=== PATIENT | female | born 1980 | race Caucasian/White ===

== ENCOUNTER → 2017-09-11 | Outpatient (CLI) | payer MEDICARE, BC ==
--- NOTE | 2017-09-11 11:09 | USB ---
Reason for exam: clinical finding. History: Family history of breast cancer in aunt and breast cancer in grandmother. Benign excisional biopsy of the right breast, 2006. Physical Findings: Nurse did not find any significant physical abnormalities on exam. US Breast BILAT Right breast ultrasound includes all four quadrants, the retroareolar region and axilla. Finding demonstrates a 0.5 x 0.3 x 0.5cm mixed lesion at 5 o'clock. Left breast ultrasound includes all four quadrants, the retroareolar region and axilla. Finding demonstrates a 0.4 x 0.2 x 0.4cm hypoechoic lesion at 5 o'clock, a 0.3 x 0.2 x 0.4cm lesion too small to characterize at 6 o'clock, a 0.4 x 0.3 x 0.4cm mixed lesion at 6 o'clock and a 0.9 x 0.5 x 1.0cm mixed lesion at 4 o'clock. These results were verbally communicated with the patient and result sheet given to the patient on 09/11/17. ASSESSMENT: Probably benign, BI-RAD 3 RECOMMENDATION: Ultrasound of both breasts in 6 months. Manage patient on a clinical basis.
== END | disposition home or self-care (01) ==
LOC: RADUSWWP 09:48
PROVIDERS: ATTEND Family Medicine
DX: R59.0 Localized enlarged lymph nodes (principal)

== ENCOUNTER 2018-03-27 11:16 | Emergency (ER) | payer MEDICARE, OTHER ==
[2018-03-27] MEDS ORDERED: ORPHENADRINE 30 MG/ML 2 ML VIAL IM STA (11:33)
[2018-03-27] MEDS ORDERED: KETOROLAC 60 MG/2 ML VIAL IM STA (11:33)
--- NOTE | 2018-03-27 11:59 | ED ---
Back Pain HPI - General Chief Complaint: Back Pain/Injury Stated Complaint: Back Pain Time Seen by Provider: 03/27/18 11:26 Source: patient, RN notes reviewed, old records reviewed Limitations: no limitations - History of Present Illness Initial Comments: This Patient is a 37-year-old female presents the emergency department today chief complaint of pain in her lumbar spine. Patient reports that yesterday she felt a pop in her back and has been having severe pain and spasming since that time. Patient reports that she has no saddle anesthesias. She denies any history of urinary changes. She denies bloody of water. No abdominal pain. Patient has had a history of spinal issues when she was 18 years old. She has not seen a risk adjustment specialist since that time. She's just been taking Motrin whenever she would have this pain off and on. Patient reports that her pain is never been this severe. - Related Data Previous Rx's Medication Instructions Recorded Cyclobenzaprine [Flexeril] 10 mg PO TID #15 tab 03/27/18 Dexamethasone 0.75 mg PO DAILY #12 tab 03/27/18 Ibuprofen [Motrin] 800 mg PO TID #20 tab 03/27/18 traMADol HCL [Ultram] 50 mg PO Q6HR PRN 3 Days #12 tab 03/27/18 Allergies Allergy/AdvReac Type Severity Reaction Status Date / Time No Known Allergies Allergy Verified 03/27/18 11:21 Review of Systems ROS Statement: Those systems with pertinent positive or pertinent negative responses have been documented in the HPI. ROS Other: All systems not noted in ROS Statement are negative. Past Medical History Past Medical History: Diabetes Mellitus Additional Past Medical History / Comment(s): chronic back pain, migraines, pcos History of Any Multi-Drug Resistant Organisms: None Reported Past Surgical History: Section, Tonsillectomy Additional Past Surgical History / Comment(s): eye surgery Past Psychological History: Depression Smoking Status: Former smoker Past Alcohol Use History: Occasional Past Drug Use History: Marijuana General Exam - General Exam Comments Initial Comments: 37-year-old female. Alert and oriented. Limitations: no limitations General appearance: alert, in no apparent distress Head exam: Present: atraumatic, normocephalic, normal inspection Eye exam: Present: normal appearance, PERRL, EOMI. Absent: scleral icterus, conjunctival injection, periorbital swelling ENT exam: Present: normal exam, mucous membranes moist Neck exam: Present: normal inspection. Absent: tenderness, meningismus, lymphadenopathy Respiratory exam: Present: normal lung sounds bilaterally. Absent: respiratory distress, wheezes, rales, rhonchi, stridor Cardiovascular Exam: Present: regular rate, normal rhythm, normal heart sounds. Absent: systolic murmur, diastolic murmur, rubs, gallop, clicks GI/Abdominal exam: Present: soft, normal bowel sounds. Absent: distended, guarding, rebound, rigid Extremities exam: Present: normal inspection, full ROM, normal capillary refill. Absent: tenderness, pedal edema, joint swelling, calf tenderness Back exam: Present: normal inspection, tenderness (Is tenderness over the SI joint and L5.), muscle spasm (Severe muscle spasms over paraspinal muscles.), paraspinal tenderness Neurological exam: Present: alert, oriented X3, CN II-XII intact Psychiatric exam: Present: normal affect, normal mood Skin exam: Present: warm, dry, intact, normal color. Absent: rash Course Vital Signs 03/27/18 11:18 Temperature 98.6 F Pulse Rate 109 H Respiratory 20 Rate Blood Pressure 162/107 O2 Sat by Pulse 97 Oximetry Medical Decision Making - Medical Decision Making 37-year-old female chief complaint of popping in her lumbar spine in severe pain. She is unable to fully stand up without pinching pain. She reports that she lays flat she feels better. Patient is quite adamant about refusing narcotic pain medication. She will come tramadol. She does appear in moderate discomfort. We did give her Toradol and Norflex. She does report some relief. The we will obtain x-rays. Is no evidence of spinal listhesis or spondylolysis. She does have degenerative changes noted. She also x-ray correlate for sacroiliitis. At this time Patient was started on Decadron, Motrin 800 and Flexeril and Ultram. I discussed taking the medications or following up with a risk adjustment specialist. Patient agrees to treatment plan will comply. Return parameters were discussed. Discussed follow-up with orthopedic risk adjustment specialist for further evaluation such as an MRI. Patient agrees. - Radiology Data Radiology results: report reviewed Degenerative disc disease. Correlate for possible sacroiliitis. MRI be of benefit. Disposition Clinical Impression: Lumbar degenerative disc disease, Acute back pain Disposition: HOME SELF-CARE Condition: Good Instructions: Acute Low Back Pain (ED) Additional Instructions: Patient advised to take medication as prescribed. Follow-up with primary care physician as well as risk adjustment specialist in the next 1-2 days. Return to the emergency department if any alarming signs or symptoms occur. Prescriptions: Cyclobenzaprine [Flexeril] 10 mg PO TID #15 tab Dexamethasone 0.75 mg PO DAILY #12 tab Ibuprofen [Motrin] 800 mg PO TID #20 tab traMADol HCL [Ultram] 50 mg PO Q6HR PRN 3 Days #12 tab PRN Reason: Pain Is patient prescribed a controlled substance at d/c from ED?: Yes When asked, does pt state using other controlled substances?: Yes If prescribed controlled substance>3 days was MAPS reviewed?: Prescribed <3 Days If opioid is for acute pain is fill amount 7 days or less?: Yes If Rx opioid, was Start Talking consent form obtained?: Yes Referrals: Jae Shabazz MD [Primary Care Provider] - 1-2 days Melvin Urena DO [Doctor of Osteopathic Medicine] - 1-2 days Time of Disposition: 12:45
--- NOTE | 2018-03-27 12:10 | XR ---
Lumbar spine HISTORY: Right-sided back pain radiating down right leg 3 views of the lumbar spine Lumbar vertebral bodies show preserved height, alignment, and bone mineralization. There is a mild sp inal curvature. Loss of disc height present L5-S1 with associated spondylosis. Sclerosis present at t he sacroiliac joints. IMPRESSION: Degenerative disc disease. Correlate for possible sacroiliitis. MRI may be of benefit.
[2018-03-27] MEDS ORDERED: traMADol 50 MG STARTER PACK 3 TAB BTL PO STA (12:39)
[2018-03-27 13:09] VITALS: BP 132/75; PULSE 72; RESP 18; TEMP 97.8
== END 2018-03-27 12:59 | disposition home or self-care (01) ==
LOC: EC 11:16
DX: M51.36 Other intervertebral disc degeneration, lumbar region (principal); M47.896 Other spondylosis, lumbar region; Z87.891 Personal history of nicotine dependence; Z53.29 Procedure and treatment not carried out because of patient's decision for other reasons
CPT/HCPCS: 72100; 99284; 96372 ×2; J2360; J1885

== ENCOUNTER 2019-07-20 13:58 | Inpatient (IN) | payer MEDICARE, BC ==
--- NOTE | 2019-07-20 14:43 | ED ---
General Adult HPI - General Chief complaint: Psychiatric Symptoms Stated complaint: Mental Health, Petition Time Seen by Provider: 07/20/19 14:12 Source: patient, police, RN notes reviewed Mode of arrival: ambulatory Limitations: no limitations - History of Present Illness Initial comments: Patient is a pleasant 39-year-old female presenting to the emergency department for reported suicidal statements. Patient admits that she felt suicidal several days ago and did write 3 suicide notes. Patient states since that time this is past. Patient no longer feels suicidal. Patient denies any homicidal thoughts. No alcohol or street drug use. No physical complaints. Patient states she is depressed. Patient states the depression and suicidal thoughts from previous related to problem she is having with her as well as other problem. - Related Data Home Medications Medication Instructions Recorded Confirmed Citalopram Hydrobromide [CeleXA] 10 - 20 mg PO DAILY 07/20/19 07/20/19 Allergies Allergy/AdvReac Type Severity Reaction Status Date / Time No Known Allergies Allergy Verified 07/20/19 14:25 Review of Systems ROS Statement: Those systems with pertinent positive or pertinent negative responses have been documented in the HPI. ROS Other: All systems not noted in ROS Statement are negative. Constitutional: Denies: fever Eyes: Denies: eye pain ENT: Denies: ear pain Respiratory: Denies: cough Cardiovascular: Denies: chest pain Endocrine: Denies: fatigue Gastrointestinal: Denies: abdominal pain Genitourinary: Denies: dysuria Musculoskeletal: Denies: back pain Skin: Denies: rash Neurological: Denies: headache Psychiatric: Reports: as per HPI, anxiety, depression. Denies: auditory halluc inations, visual hallucinations, homicidal thoughts Past Medical History Past Medical History: Diabetes Mellitus Additional Past Medical History / Comment(s): chronic back pain, migraines, pcos History of Any Multi-Drug Resistant Organisms: None Reported Past Surgical History: Section, Tonsillectomy Additional Past Surgical History / Comment(s): eye surgery Past Psychological History: Depression, PTSD Smoking Status: Former smoker Past Alcohol Use History: Occasional Past Drug Use History: Marijuana General Exam Limitations: no limitations General appearance: alert, in no apparent distress Head exam: Present: atraumatic Eye exam: Present: normal appearance Neck exam: Present: normal inspection Respiratory exam: Present: normal lung sounds bilaterally Cardiovascular Exam: Present: tachycardia GI/Abdominal exam: Present: soft. Absent: tenderness Extremities exam: Present: normal inspection Neurological exam: Present: alert Psychiatric exam: Present: depressed, anxious Skin exam: Present: normal color. Absent: rash Course Vital Signs 07/20/19 14:05 Temperature 97.0 F L Pulse Rate 119 H Respiratory 18 Rate Blood Pressure 144/96 O2 Sat by Pulse 99 Oximetry Medical Decision Making - Medical Decision Making Patient seen by mental health services, who will admit. Positive clinical certificate completed. - Lab Data Lab Results 07/20/19 Range/Units 14:15 Urine Opiates Screen Not Detected (NotDetected) Ur Oxycodone Screen Not Detected (NotDetected) Urine Methadone Screen Not Detected (NotDetected) Ur Propoxyphene Screen Not Detected (NotDetected) Ur Barbiturates Screen Not Detected (NotDetected) U Tricyclic Antidepress Not Detected (NotDetected) Ur Phencyclidine Scrn Not Detected (NotDetected) Ur Amphetamines Screen Not Detected (NotDetected) U Methamphetamines Scrn Not Detected (NotDetected) U Benzodiazepines Scrn Not Detected (NotDetected) Urine Cocaine Screen Not Detected (NotDetected) U Marijuana (THC) Screen Detected H (NotDetected) Disposition Clinical Impression: Depression, Suicidal ideation Disposition: TRANSFER TO PSYCH HOSP/UNIT Is patient prescribed a controlled substance at d/c from ED?: No Referrals: Jae Shabazz MD [Primary Care Provider] - 1-2 days Decision Time: 16:34
[2019-07-20 15:06] LABS: Amphetamine Screen,Urine Not Detected (NotDetected); Barbiturate Screen,Urine Not Detected (NotDetected); Benzodiazepines Screen,Urine Not Detected (NotDetected); Cocaine Screen,Urine Not Detected (NotDetected); Methadone Screen, Urine Not Detected (NotDetected); Opiate Screen,Urine Not Detected (NotDetected); Oxycodone Screen, Urine Not Detected (NotDetected); Phencyclidine Screen,Urine Not Detected (NotDetected); Tricyclic Antidepressant,Urine Not Detected (NotDetected); Urn Cannabinoid Scrn Detected (NotDetected)
[2019-07-20] MEDS ORDERED: LORazepam 1 MG TAB PO PRN (17:28)
[2019-07-20] MEDS ORDERED: ZIPRASIDONE 20 MG VIAL IM PRN (17:28)
[2019-07-20] MEDS ORDERED: MAG HYDROX/AL HYDROX/SIMETH 30 ML CUP PO PRN (17:28)
[2019-07-21 08:49] LABS: Basophils % (A) 0 %; Eosinophils # (A) 0.1 k/uL (0-0.7); Eosinophils % (A) 1 %; HCT 43.6 % (34.0-46.0); HGB 14.6 gm/dL (11.4-16.0); Lymphocytes # (A) 1.1 k/uL (1.0-4.8); Lymphocytes % (A) 13 %; MCH 29.8 pg (25.0-35.0); MCHC 33.4 g/dL (31.0-37.0); Mean Platelet Volume 5.8; Monocytes # (A) 0.2 k/uL (0-1.0); Monocytes % (A) 3 %; Neutrophils # (A) 6.7 k/uL (1.3-7.7); Neutrophils % (A) 82 %; Platelet Count 338 k/uL (150-450); RBC 4.89 m/uL (3.80-5.40); RDW 12.6 % (11.5-15.5); WBC 8.2 k/uL (3.8-10.6)
[2019-07-21 09:03] LABS: ALT 17 U/L (9-52); AST 19 U/L (14-36); African American GFR (CKD) >90 (>60 ml/min/1.73 sqM); Albumin 4.9 g/dL (3.5-5.0); Alkaline Phosphatase 63 U/L (38-126); Anion Gap 13 mmol/L; Blood Urea Nitrogen 17 mg/dL (7-17); Calcium 10.5 mg/dL (8.4-10.2); Carbon Dioxide 25 mmol/L (22-30); Chloride 104 mmol/L (98-107); Cholesterol 191 mg/dL (<200); Glucose 136 mg/dL (74-99); HDL Cholesterol 46 mg/dL (40-60); LDL Cholesterol,Calculated 124 mg/dL (0-99); Potassium 4.3 mmol/L (3.5-5.1); Sodium 142 mmol/L (137-145); Total Bilirubin 0.9 mg/dL (0.2-1.3); Total Protein 8.1 g/dL (6.3-8.2); Triglycerides 103 mg/dL (<150)
[2019-07-21 09:42] VITALS: BMI 25.3
[2019-07-21] MEDS: CITALOPRAM HYDROBROMIDE 20 MG TAB PO SCH (15:29)
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
[2019-07-21 17:58] LABS: Glucose,Whole Blood 109 mg/dL (75-99)
[2019-07-21 18:02] LABS: Hemoglobin A1C 4.9 % (4.0-6.0)
[2019-07-21] MEDS: INSULIN ASPART (NovoLOG) 100 UNIT/ML VIAL SQ SCH ×2 (18:06→21:00)
[2019-07-21 20:22] LABS: Glucose,Whole Blood 111 mg/dL (75-99)
--- NOTE | 2019-07-21 21:52 | CONS ---
CONSULTATION DATE OF SERVICE: 07/21/2019 REASON FOR CONSULTATION: Advice regarding diabetes mellitus and other medical issues, requested by Psychiatry. HISTORY OF PRESENT ILLNESS: This 39-year-old woman with a past medical history of multiple medical problems, including bariatric surgery, history of diabetes mellitus, chronic back pain, migraines, depression, PTSD, THC, was admitted for suicidal ideations. The patient had bariatric surgery from [place]. There is no history of any fever, rigor or chills. No history of headache, loss of consciousness, seizures at this time. PAST MEDICAL HISTORY: 1. History of diabetes mellitus, type 2. 2. Chronic back pain. 3. DJD. 4. History of depression. 5. PTSD. 6. History of nicotine dependence. HOME MEDICATIONS: Celexa 10 to 20 mg daily. ALLERGIES: NONE. FAMILY HISTORY: No history of heart disease or strokes in the family. SOCIAL HISTORY: History of THC. Occasional alcohol. Previous history of smoking. REVIEW OF SYSTEMS: ENT: No diminished hearing. No diminished vision. CARDIOVASCULAR SYSTEM: No angina, palpitations. RESPIRATORY SYSTEM: No cough, hemoptysis. GI: The patient has some difficulty in swallowing. : No dysuria or retention. NERVOUS SYSTEM: No numbness, weakness. ALLERGY/IMMUNOLOGY: No asthma, hayfever. MUSCULOSKELETAL: As mentioned earlier. HEMATOLOGY/ONCOLOGY: No history of anemia. ENDOCRINE: As mentioned earlier. CONSTITUTIONAL: As mentioned earlier. DERMATOLOGY: Negative. RHEUMATOLOGY: Negative. PSYCHIATRY: As mentioned earlier. PHYSICAL EXAMINATION: Patient is alert and oriented x3. Pulse is 119, blood pressure 144/96, respiration 18, temperature 97 degrees, pulse ox 99% on room air. HEENT: Conjunctivae normal. Oral mucosa moist. NECK: No jugular venous distention. No carotid bruit. No lymph node enlargement. CARDIOVASCULAR SYSTEM: S1, S2 muffled. No S3. No S4. RESPIRATORY SYSTEM: Breath sounds diminished at the bases. No rhonchi. No crackles. ABDOMEN: Soft, non-tender. No mass palpable. LEGS: No edema. No swelling. NERVOUS SYSTEM: Higher functions as mentioned earlier. Moves all 4 limbs. No focal motor or sensory deficit. LYMPHATICS: No lymph node palpable in neck, axillae or groin. SKIN: No ulcer, rash, bleeding. JOINTS: No active deforming arthropathy. LABS: CBC within normal limits. Sodium 142, potassium 4.3. Calcium is 10.5. Glucose 136. LDL is 124. ASSESSMENT: 1. Depression and suicidal ideation for evaluation. 2. History of bariatric surgery. 3. History of diabetes mellitus, type 2. 4. Hypercalcemia, mild. 5. Increased LDL. 6. Tetrahydrocannabinol. 7. History of degenerative joint disease. 8. Chronic back pain. 9. History of migraines. 10.History of depression and post-traumatic stress disorder. 11.Remote history of nicotine dependence. 12.FULL CODE. RECOMMENDATIONS AND DISCUSSION: In this 39-year-old woman who presented with multiple medical issues, at this time I recommend to continue current medications, continue symptomatic treatment, monitor blood sugars closely. If the blood sugars are normal, could be discontinued in 24 to 48 hours. Otherwise, I would also recommend correction scale if the sugars are found to be elevated. Adequate hydration. Otherwise, follow up LDL in the outpatient setting. We will monitor the patient closely with you. I would also recommend followup with the patient's original bariatric surgeon in the outpatient setting. We will continue to monitor. Thank you for letting us participate in the care of this patient. MMODL / IJN: [id number] / DOMINICK
[2019-07-22 07:59] LABS: Glucose,Whole Blood 118 mg/dL (75-99)
[2019-07-22] MEDS: INSULIN ASPART (NovoLOG) 100 UNIT/ML VIAL SQ SCH ×4 (08:22→20:31)
[2019-07-22] MEDS: IBUPROFEN 400 MG TAB PO PRN ×2 (09:41→16:29)
--- NOTE | 2019-07-22 09:42 | P.PN ---
Progress Note - Text Progress Note Date: 07/22/19 Interval History: Patient was seen wandering the hallways and was agreeable speak to loan underwriter in the office. Patient claimed that she has been thinking about her relationship with her and whether or not she will be following for divorce. She states that she cannot trust him and doesn't know if she will do something else against her or towards the kids. Patient claims that she has been trying to make the most of being on the unit and continues to try to stay positive. Patient states that she had a difficult time sleeping last night due to another patient snoring. She states that her mood has been gradually improving along with her anxiety. She claims to have fair energy and her appetite has been improving. Patient did state that she had some nausea yesterday after taking the Celexa however it resolved on its own. At this time patient denies any suicidal or homical ideations, intent or plan. Patient denies any auditory, visual hallucinations and denies any paranoia or delusions. Patient has been compliant with meds. Mental Status Exam: General Appearance: Patient appears to be stated age is alert, attempts to be cooperative. Fair hygiene and grooming. Good eye contact. Behavior: Patient is seated without any agitated behavior. Patient was less labile today. Speech: Patient's speech is fluent and nonpressured. Hyperverbal. Mood/Affect: Patient reports their mood is depressed, affect is congruent Suicidality/Homicidality: Patient denies having any suicidal or homicidal ideation intent or plan. Perceptions: Patient denies any auditory or visual hallucinations. Though content/process: Patient is Tangential/circumstantial. Memory and concentration: AOX3, grossly intact for the purposes of this session. Judgment and insight: poor, improving mildly. Assessment Major depressive disorder without psychotic features PTSD Cannabis use disorder Plan: -Patient continues to meet criteria for inpatient psychiatric admission for symptom stabilization and safety. Patient has signed adult voluntary form and medication consent and was placed in patient's chart. -Medications: Will continue on Celexa 20 mg however is switched to nighttime dosing, for mood/anxiety with plan to titrate up as tolerated. -When necessary Geodon and Ativan for agitation/aggression. -NRT -not needed as patient does not smoke -SW on board for discharge planning. Likely discharge home in 2-3 days.
[2019-07-22] MEDS: CITALOPRAM HYDROBROMIDE 20 MG TAB PO SCH (11:02)
[2019-07-22] MEDS: ACETAMINOPHEN TAB 325 MG TAB PO PRN ×2 (12:56→21:37)
[2019-07-22 13:06] LABS: Glucose,Whole Blood 94 mg/dL (75-99)
[2019-07-22 17:42] LABS: Glucose,Whole Blood 101 mg/dL (75-99)
[2019-07-22 20:28] LABS: Glucose,Whole Blood 107 mg/dL (75-99)
[2019-07-22] MEDS ORDERED: CITALOPRAM HYDROBROMIDE 20 MG TAB PO SCH (21:00)
[2019-07-23] MEDS: ACETAMINOPHEN TAB 325 MG TAB PO PRN (04:50)
[2019-07-23 05:09] VITALS: BP 133/94; PULSE 109; RESP 16; TEMP 98.9
[2019-07-23 07:59] LABS: Glucose,Whole Blood 108 mg/dL (75-99)
[2019-07-23] MEDS: INSULIN ASPART (NovoLOG) 100 UNIT/ML VIAL SQ SCH ×2 (08:24→12:46)
[2019-07-23] MEDS ORDERED: ASPIRIN-ACET-CAFF 250-250-65MG 1 EACH TAB PO PRN (09:06)
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
[2019-07-23 12:45] LABS: Glucose,Whole Blood 112 mg/dL (75-99)
== END 2019-07-23 15:33 | disposition home or self-care (01) | DRG 881 ==
LOC: EC 13:58 → 3MHU 17:24
PROVIDERS: ADMIT Psychiatry & Neurology Psychiatry; ATTEND Psychiatry & Neurology Psychiatry
DX: F32.9 Major depressive disorder, single episode, unspecified (principal); R45.851 Suicidal ideations; E11.9 Type 2 diabetes mellitus without complications; E83.52 Hypercalcemia; F43.10 Post-traumatic stress disorder, unspecified; F12.10 Cannabis abuse, uncomplicated; G89.29 Other chronic pain; M54.9 Dorsalgia, unspecified; G43.909 Migraine, unspecified, not intractable, without status migrainosus; K21.9 Gastro-esophageal reflux disease without esophagitis; E28.2 Polycystic ovarian syndrome; M19.90 Unspecified osteoarthritis, unspecified site; Z79.899 Other long term (current) drug therapy; Z98.891 History of uterine scar from previous surgery; Z98.890 Other specified postprocedural states; Z87.891 Personal history of nicotine dependence; Z98.84 Bariatric surgery status; Z81.8 Family history of other mental and behavioral disorders
CPT/HCPCS: 80053; 80061; 80306; 82075; 83036; 84443; 85025; 99285

== ENCOUNTER → 2021-09-09 | Outpatient (CLI) | payer MEDICARE, BC ==
--- NOTE | 2021-09-09 10:43 | EST ---
EXERCISE STRESS INDICATION: Chest pain. AGE: 41 SEX: F HT: 5'4" WT: 162 lbs PROTOCOL: Phil STAGE: 4 DURATION OF EXERCISE: 10:00 HEART RATE REST: 70 BLOOD PRESSURE REST: 143/89 MAXIMUM HEART RATE ACHIEVED: 175 MAXIMUM BLOOD PRESSURE: 205/64 85% MPHR: 143 100% MPHR: 180 METS: 11.8 RESULTS: Baseline EKG shows sinus rhythm, normal axis, normal intervals. Patient exercised on Phil protocol for a total of 10 minutes, achieving 11 METS, 97% of predicted maximal heart rate without chest pain or diagnostic ST-segment depression. CONCLUSIONS: 1. Good exercise tolerance. 2. Negative stress test by EKG criteria. MMODL / IJN: [id number] /
== END | disposition home or self-care (01) ==
LOC: RADNMMAIN 08:40
PROVIDERS: ATTEND Family Medicine
DX: R07.89 Other chest pain (principal)
CPT/HCPCS: 93017

== ENCOUNTER 2023-09-09 07:31 | Emergency (ER) | payer BC, MEDICARE ==
[2023-09-09 07:48] VITALS: TEMP 98.4
--- NOTE | 2023-09-09 08:11 | ED ---
Female Urogenital HPI - General Chief complaint: Vaginal Bleeding Stated complaint: Cramping, 11 wks Time Seen by Provider: 09/09/23 07:47 Source: patient, RN notes reviewed Mode of arrival: ambulatory Limitations: no limitations - History of Present Illness Initial comments: This is a 43-year-old female who presents to the emergency department for vaginal bleeding in . Patient reports vaginal bleeding that started at approximate 5:30 this morning. Bleeding is described as bright red blood with heavy clots. She is and approximately 11 weeks . Due to her insurance she has not been able to have any care thus far. Reports abdominal cramping. Denies any nausea or vomiting. MD Complaint: vaginal bleeding - Related Data Previous Rx's Medication Instructions Recorded Citalopram Hydrobromide [CeleXA] 20 mg PO HS 28 Days tab 07/23/19 Ibuprofen [Motrin] 400 mg PO Q6HR PRN tab 07/23/19 Ibuprofen [Motrin] 800 mg PO Q8H PRN #30 tab 09/09/23 LORazepam [Ativan] 1 mg PO TID PRN #15 tab 09/09/23 Allergies Allergy/AdvReac Type Severity Reaction Status Date / Time No Known Allergies Allergy Verified 09/09/23 07:46 Review of Systems ROS Statement: Those systems with pertinent positive or pertinent negative responses have been documented in the HPI. ROS Other: All systems not noted in ROS Statement are negative. Past Medical History Past Medical History: Diabetes Mellitus Additional Past Medical History / Comment(s): chronic back pain, migraines, pcos History of Any Multi-Drug Resistant Organisms: None Reported Past Surgical History: Section, Tonsillectomy Additional Past Surgical History / Comment(s): eye surgery Past Anesthesia/Blood Transfusion Reactions: No Reported Reaction Past Psychological History: Depression, PTSD Smoking Status: Never smoker Past Alcohol Use History: Occasional Past Drug Use History: Marijuana General Exam Limitations: no limitations General appearance: alert, in no apparent distress Head exam: Present: atraumatic, normocephalic, normal inspection Respiratory exam: Present: normal lung sounds bilaterally. Absent: respiratory distress, wheezes, rales, rhonchi, stridor Cardiovascular Exam: Present: regular rate, normal rhythm, normal heart sounds. Absent: systolic murmur, diastolic murmur, rubs, gallop, clicks Neurological exam: Present: alert, oriented X3, CN II-XII intact Psychiatric exam: Present: normal affect, normal mood Skin exam: Present: warm, dry, intact, normal color. Absent: rash Course Vital Signs 09/09/23 09/09/23 09/09/23 07:44 10:17 15:32 Temperature 98.4 F Pulse Rate 118 H 78 Respiratory 22 24 Rate Blood Pressure 155/94 176/102 148/96 O2 Sat by Pulse 98 98 Oximetry Medical Decision Making - Medical Decision Making This is a 43-year-old female who presents to the emergency department for vaginal bleeding in . Was pt. sent in by a medical professional or institution? @ -No Did you speak to anyone other than the patient for history? @ -No Did you review nursing and triage notes? @ -Yes, and I agree, it is accurate with regards to the patient's symptoms. Were old charts reviewed? @ -No Differential Diagnosis? @ -Differential Vaginal Bleeding: Spontaneous , threatened , molar , ectopic , i ncompetent cervix, placenta previa, uterine rupture, dysfunctional uterine bleeding, hemorrhage, uterine fibroids, malignancy, coagulopathy, PID, cervicitis, adenomyosis, vaginal trauma, this is not meant to be an all- inclusive list. EKG interpreted by me (3pts min.)? @ -Not obtained X-rays interpreted by me (1pt min.)? @ -Not obtained CT interpreted by me (1pt min.)? @ -Not obtained U/S interpreted by me (1pt. min.)? @ -OB US obtained. My interpretation identifies no cardiac activity. What testing was considered but not performed? (CT, X-rays, U/S, labs)? Why? @ -None What meds were considered but not given? Why? @ -None Did you discuss the management of the patient with other professionals? @ -No Did you reconcile home meds? @ -No Was smoking cessation discussed for >3mins.? @ -No Was critical care preformed (if so, how long)? @ -No Were there social determinants of health that impacted care today? How? (Homelessness, low income, unemployed, alcoholism, drug addiction, transportation, low edu. Level, literacy, decrease access to med. care, assisted, rehab)? @ -No Was there de-escalation of care discussed even if they declined? (Discuss DNR or withdrawal of care, Hospice)? @ -No What co-morbidities impacted this encounter? (DM, HTN, Smoking, COPD, CAD, Cancer, CVA, Hep., AIDS, mental health diagnosis, sleep apnea, morbid obesity)? @ - Was patient admitted / discharged? @ -Discharged. Lab work obtained and found to be unremarkable. Hemoglobin WNL at 13.3. HCG is 3736.1. Patient is Rh- and RhoGAM was administered. Tylenol provided for pain relief, however this was ineffective and she was subsequently given a dose of morphine. Her pain continued to increase well in the emergency department, but was eventually controlled with Dilaudid and Toradol. States that the cramping ended up improving substantially towards the end of her visit. However she was really struggling with this emotionally. Reports a hx of PTSD a s well, which is making this worse. She was given a dose of Ativan, which she found very helpful. At that point, both her anxiety and pain had improved and she felt stable for discharge home. She was given a prescription for a short- term course of Ativan for any additional emotional distress as well as ibuprofen 800 mg. Information for [facility] [employer] [facility] follow-up was provided as well. Undiagnosed new problem with uncertain prognosis? @ -None Drug Therapy requiring intensive monitoring for toxicity (Heparin, Nitro, Insulin, Cardizem)? @ -None Were any procedures done? @ -None Diagnosis/symptom? @ -Incomplete Acute, or Chronic, or Acute on Chronic? @ -Acute Uncomplicated (without systemic symptoms) or Complicated (systemic symptoms)? @ -Uncomplicated Side effects of treatment? @ -None Exacerbation, Progression, or Severe Exacerbation] @ -Not applicable Poses a threat to life or bodily function? @ -This will depend on the severity of the bleeding and pain. Return precautions reviewed in depth, the patient is instructed to return to the emergency department with any new, worsening, or concerning symptoms. Patient verbalized understanding. This case was discussed in detail with the attending ED physician, Dr. Vitael. Presentation, findings, and treatment plan discussed in detail as well. - Lab Data Result diagrams: 09/09/23 08:10 09/09/23 08:10 Lab Results 09/09/23 09/09/23 09/09/23 Range/Units 08:10 08:10 08:10 WBC 9.4 (3.8-10.6) k/uL RBC 4.36 (3.80-5.40) m/uL Hgb 13.3 (11.4-16.0) gm/dL Hct 38.5 (34.0-46.0) % MCV 88.3 (80.0-100.0) fL MCH 30.6 (25.0-35.0) pg MCHC 34.6 (31.0-37.0) g/dL RDW 12.7 (11.5-15.5) % Plt Count 232 (150-450) k/uL MPV 6.7 Neutrophils % 82 % Lymphocytes % 12 % Monocytes % 4 % Eosinophils % 1 % Basophils % 0 % Neutrophils # 7.7 (1.3-7.7) k/uL Lymphocytes # 1.1 (1.0-4.8) k/uL Monocytes # 0.4 (0-1.0) k/uL Eosinophils # 0.1 (0-0.7) k/uL Basophils # 0.0 (0-0.2) k/uL Sodium 136 L (137-145) mmol/L Potassium 3.8 (3.5-5.1) mmol/L Chloride 103 (98-107) mmol/L Carbon Dioxide 24 (22-30) mmol/L Anion Gap 9 mmol/L BUN 8 (7-17) mg/dL Creatinine 0.58 (0.52-1.04) mg/dL Est GFR (CKD-EPI)AfAm >90 (>60 ml/min/1.73 sqM) Est GFR (CKD-EPI)NonAf >90 (>60 ml/min/1.73 sqM) Glucose 106 H (74-99) mg/dL Calcium 9.1 (8.4-10.2) mg/dL Total Bilirubin 0.5 (0.2-1.3) mg/dL AST 20 (14-36) U/L ALT 15 (4-34) U/L Alkaline Phosphatase 93 (38-126) U/L Total Protein 7.0 (6.3-8.2) g/dL Albumin 4.1 (3.5-5.0) g/dL HCG, Quant 3736.1 mIU/mL Blood Type A Negative Blood Type Recheck A Neg Bld Type Recheck Status No Antibody Screen NEGATIVE Spec Expiration Date 09/12/20232309 - Radiology Data Radiology results: report reviewed, image reviewed Disposition Clinical Impression: Miscarriage Disposition: HOME SELF-CARE Instructions (If sedation given, give patient instructions): Miscarriage (ED) Additional Instructions: Return to the emergency department with any new, worsening, or concerning symptoms. Alternate with ibuprofen and Tylenol as needed for pain relief. You can take the Ativan 3-4 times daily as needed for anxiety and emotional distress. You can also break these in half. If the pharmacy does not have this in stock, call the emergency department and we can send this to a different pharmacy for you. Prescriptions: LORazepam [Ativan] 1 mg PO TID PRN #15 tab PRN Reason: Anxiety Ibuprofen [Motrin] 800 mg PO Q8H PRN #30 tab PRN Reason: Pain Is patient prescribed a controlled substance at d/c from ED?: Yes When asked, does pt state using other controlled substances?: No If prescribed controlled substance>3 days was MAPS reviewed?: Prescribed <3 Days Referrals: Jae Shabazz MD [Primary Care Provider] - 1-2 days Tracy Up DO [Doctor of Osteopathic Medicine] - 1-2 days
[2023-09-09] MEDS ORDERED: SODIUM CHLORIDE 0.9% 1,000 ML IV STA ×2 (08:18→14:03)
[2023-09-09] MEDS ORDERED: ACETAMINOPHEN IV (For NPO) 1,000 MG in EMPTY BAG 1 BAG IVPB STA (08:18)
[2023-09-09 08:26] LABS: Basophils % (A) 0 %; Eosinophils # (A) 0.1 k/uL (0-0.7); Eosinophils % (A) 1 %; HCT 38.5 % (34.0-46.0); HGB 13.3 gm/dL (11.4-16.0); Lymphocytes # (A) 1.1 k/uL (1.0-4.8); Lymphocytes % (A) 12 %; MCH 30.6 pg (25.0-35.0); MCHC 34.6 g/dL (31.0-37.0); MCV 88.3 fL (80.0-100.0); Mean Platelet Volume 6.7; Monocytes # (A) 0.4 k/uL (0-1.0); Monocytes % (A) 4 %; Neutrophils # (A) 7.7 k/uL (1.3-7.7); Neutrophils % (A) 82 %; Platelet Count 232 k/uL (150-450); RBC 4.36 m/uL (3.80-5.40); RDW 12.7 % (11.5-15.5); WBC 9.4 k/uL (3.8-10.6)
[2023-09-09 08:37] LABS: ALT 15 U/L (4-34); AST 20 U/L (14-36); African American GFR (CKD) >90 (>60 ml/min/1.73 sqM); Albumin 4.1 g/dL (3.5-5.0); Alkaline Phosphatase 93 U/L (38-126); Anion Gap 9 mmol/L; Blood Urea Nitrogen 8 mg/dL (7-17); Calcium 9.1 mg/dL (8.4-10.2); Carbon Dioxide 24 mmol/L (22-30); Chloride 103 mmol/L (98-107); Glucose 106 mg/dL (74-99); Non-African American GFR(CKD) >90 (>60 ml/min/1.73 sqM); Potassium 3.8 mmol/L (3.5-5.1); Sodium 136 mmol/L (137-145); Total Bilirubin 0.5 mg/dL (0.2-1.3)
[2023-09-09 08:55] LABS: HCG,Quantitative Serum 3736.1 mIU/mL
[2023-09-09] MEDS ORDERED: Rhogam IMMUNE GLOBULIN 1,500 UNIT/1 ML IM ONE (09:18)
[2023-09-09] MEDS ORDERED: MORPHINE SULFATE 2 MG/ML SYRINGE IVP STA (09:41)
--- NOTE | 2023-09-09 10:01 | US ---
EXAMINATION TYPE: Transabdominal DATE OF EXAM: 09/09/2023 9:13 AM COMPARISON: NONE CLINICAL INDICATION: Female, 43 years old with history of Vaginal bleeding in ; EXAM PERFORMED: Transabdominal (TA) EXAM MEASUREMENTS: GESTATIONAL AGE / DATING Physician Established: Not yet established Dates by LMP: (11 weeks/6 days) EDC: 03/25/2024 Dates by First Scan: No previous this is first scan Dates by Current Scan for: No IUP seen at this time MATERNAL ANATOMY Uterus: 13.4 x 6.0 x 6.6 cm, thickened heterogeneous endometrium with 7.6 x 3.0 x 3.2 cm complex flui d collection within LIBERTY and cervical portion of endometrium. Right Ovary: 2.5 x 2.1 x 2.0cm Left Ovary: 2.7 x 1.4 x 3.6cm Post CDS / Adnexa: wnl Presence of free fluid: no Presence of corpus luteal cyst: not seen GESTATION / SURVEY IUP: No IUP seen at this time Date of LMP: 06/18/2023 Beta HcG (if available): Not available at time of exam IMPRESSION: Complex fluid collection in the lower uterine segment which could represent proximal of conception in the setting of spontaneous . Correlate clinically and continued trending beta hCG. No intrau terine gestational sac at this time.
[2023-09-09] MEDS ORDERED: HYDROmorphone 1 MG/ML 1 ML SYRINGE IVP STA ×2 (10:05→11:00)
[2023-09-09 10:36] VITALS: PULSE 78; RESP 24
[2023-09-09] MEDS ORDERED: KETOROLAC 15 MG/ML 1 ML VIAL IVP STA (12:45)
[2023-09-09] MEDS ORDERED: oxyCODONE-APAP 7.5-325MG 1 EACH TAB PO STA (13:53)
[2023-09-09] MEDS ORDERED: LORazepam 2 MG/ML INJ IV STA (14:11)
[2023-09-09] MEDS ORDERED: traMADol 50 MG STARTER PACK 3 TAB BTL PO STA (15:05)
[2023-09-09 15:41] VITALS: BP 148/96
== END 2023-09-09 15:54 | disposition home or self-care (01) ==
LOC: EC 07:31
DX: O03.9 Complete or unspecified spontaneous abortion without complication (principal); O24.111 Pre-existing type 2 diabetes mellitus, in pregnancy, first trimester; O99.321 Drug use complicating pregnancy, first trimester; E11.9 Type 2 diabetes mellitus without complications; F12.90 Cannabis use, unspecified, uncomplicated; Z86.59 Personal history of other mental and behavioral disorders; Z3A.11 11 weeks gestation of pregnancy
CPT/HCPCS: 96375 ×6; 96361 ×3; 96376 ×2; 96372 ×2; 96374 ×2; 99284 ×2; 36415; 86900; 86901; 80053; 85025; 86850; 84702; 76801; J2790; J2060; J2270; J1170; J0131; J1885

== ENCOUNTER 2024-01-22 04:02 | Emergency (ER) | payer MEDICARE, OTHER ==
[2024-01-22 06:32] LABS: Anisocytosis Slight; Basophils # (A) 0.1 k/uL (0-0.2); Basophils % (A) 1 %; Eosinophils # (A) 0.1 k/uL (0-0.7); Eosinophils % (A) 1 %; HCT 33.6 % (34.0-46.0); HGB 10.9 gm/dL (11.4-16.0); Lymphocytes # (A) 1.4 k/uL (1.0-4.8); Lymphocytes % (A) 16 %; MCH 26.2 pg (25.0-35.0); MCHC 32.4 g/dL (31.0-37.0); Mean Platelet Volume 7.2; Monocytes # (A) 0.3 k/uL (0-1.0); Monocytes % (A) 4 %; Neutrophils # (A) 6.6 k/uL (1.3-7.7); Neutrophils % (A) 78 %; Platelet Count 251 k/uL (150-450); RBC 4.15 m/uL (3.80-5.40); RDW 16.3 % (11.5-15.5); WBC 8.5 k/uL (3.8-10.6)
[2024-01-22 06:49] LABS: ALT 10 U/L (4-34); AST 16 U/L (14-36); African American GFR (CKD) >90 (>60 ml/min/1.73 sqM); Albumin 3.7 g/dL (3.5-5.0); Alkaline Phosphatase 78 U/L (38-126); Anion Gap 3 mmol/L; Blood Urea Nitrogen 11 mg/dL (7-17); Carbon Dioxide 26 mmol/L (22-30); Chloride 107 mmol/L (98-107); Glucose 96 mg/dL (74-99); Non-African American GFR(CKD) >90 (>60 ml/min/1.73 sqM); Potassium 4.2 mmol/L (3.5-5.1); Sodium 136 mmol/L (137-145); Total Bilirubin 0.4 mg/dL (0.2-1.3); Total Protein 6.4 g/dL (6.3-8.2)
[2024-01-22 06:50] LABS: Amorphous Sediment,Urine Few /hpf; Appearance,Urine Turbid (Clear); Bacteria,Urine Rare /hpf; Bilirubin,Urine Negative (Negative); Blood,Urine Large (Negative); Color,Urine Light Yellow; Glucose,Urine (UA) Negative (Negative); Ketones,Urine Negative (Negative); Leukocyte Esterase,Urine Trace (Negative); Mucus,Urine Moderate /hpf; Nitrite,Urine Negative (Negative); Protein,Urine Trace (Negative); RBC,Urine 16 /hpf (0-5); Specific Gravity,Urine 1.021 (1.001-1.035); Squamous Epithelial Cell,Urine 4 /hpf (0-4); Urobilinogen,Urine <2.0 mg/dL (<2.0); WBC,Urine 3 /hpf (0-5)
--- NOTE | 2024-01-22 07:22 | US ---
EXAMINATION TYPE: Transabdominal DATE OF EXAM: 01/22/2024 5:33 AM COMPARISON: NONE CLINICAL INDICATION: Female, 43 years old with history of pain; bleeding x 1 day. Pt states prior don e at [facility] 2 weeks ago with live IUP. EXAM PERFORMED: Transabdominal (TA) EXAM MEASUREMENTS: GESTATIONAL AGE / DATING Physician Established: Not yet established Dates by LMP: LMP unknown Dates by First Scan: No previous this is first scan Dates by Current Scan for: (8 weeks/0 days) EDC: 09/02/24 MATERNAL ANATOMY Uterus: 10.9 x 7.9 x 4.6cm Right Ovary: 2.8 x 2.8 x 1.7cm Left Ovary: 4.1 x 2.8 x 2.3cm Post CDS / Adnexa: wnl Presence of free fluid: No Presence of corpus luteal cyst: Yes in lt ov measuring 2.7 x 2.6 x 1.8cm Presence of subchorionic bleed: Yes measuring 4.5 x 4.2 x 2.9cm GESTATION / SURVEY CRL: 1.1cm (7 weeks/2 days) MSD: 3.25cm (8 weeks/5 days) Yolk Sac (normal less than 6mm): Not seen Heart Rate: Absent Rhythm: Absent IUP: No cardiac activity noted on today's scan. Question demise. Date of LMP: unknown Beta HcG (if available): N/A No cardiac activity seen on today's exam. The gestational sac does appear to be irregular shaped and more towards the LIBERTY. There is discrepancy between the dating by crown-rump length and the mean sac diameter. Positioning o f the gestational sac is towards the lower uterine segment. Intrauterine demise is suspected IMPRESSION: 1. No cardiac activity identified during this current examination. Findings can be compatible with in trauterine demise. 2. Prior studies documenting cardiac activity are unavailable at this location for comparison. Correl ate the estimated gestational age against dating by last menstrual period and physician established E DC. Discrepancy would support the diagnosis of intrauterine demise.
--- NOTE | 2024-01-22 07:48 | ED ---
Female Urogenital HPI - General Chief complaint: Vaginal Bleeding Stated complaint: Possible miscarriage, 9 weeks Time Seen by Provider: 01/22/24 04:15 Source: patient Mode of arrival: wheelchair Limitations: no limitations - History of Present Illness Initial comments: 43-year-old female who is G5, P3 who presents to the emergency department for vaginal bleeding. States that she is approximately 9 weeks 1 day . She has had previous ultrasound at 5 weeks which demonstrated intrauterine and positive heart tones. As of yesterday the patient began having heavy vaginal bleeding which is bright red in coloration. She denies having any abdominal pain. Denies any issues with her urination to include dysuria, hematu barbie or difficulty voiding. Denies diarrhea, constipation, black or bloody stools. No fevers. She has not had any issues with this thus far. No other alleviating, precipitating or modifying factors - Related Data Previous Rx's Medication Instructions Recorded Citalopram Hydrobromide [CeleXA] 20 mg PO HS 28 Days tab 07/23/19 Ibuprofen [Motrin] 400 mg PO Q6HR PRN tab 07/23/19 Ibuprofen [Motrin] 800 mg PO Q8H PRN #30 tab 09/09/23 LORazepam [Ativan] 1 mg PO TID PRN #15 tab 09/09/23 Allergies Allergy/AdvReac Type Severity Reaction Status Date / Time No Known Allergies Allergy Verified 01/22/24 04:07 Review of Systems ROS Statement: Those systems with pertinent positive or pertinent negative responses have been documented in the HPI. ROS Other: All systems not noted in ROS Statement are negative. Past Medical History Past Medical History: Diabetes Mellitus Additional Past Medical History / Comment(s): chronic back pain, migraines, pcos History of Any Multi-Drug Resistant Organisms: None Reported Past Surgical History: Section, Tonsillectomy Additional Past Surgical History / Comment(s): eye surgery Past Anesthesia/Blood Transfusion Reactions: No Reported Reaction Past Psychological History: Depression, PTSD Smoking Status: Never smoker Past Alcohol Use History: Occasional Past Drug Use History: Marijuana General Exam Limitations: no limitations General appearance: alert, in no apparent distress Head exam: Present: atraumatic, normocephalic, normal inspection Eye exam: Present: normal appearance, PERRL, EOMI. Absent: scleral icterus, conjunctival injection, periorbital swelling ENT exam: Present: normal exam, mucous membranes moist Neck exam: Present: normal inspection. Absent: tenderness, meningismus, lymphadenopathy Respiratory exam: Present: normal lung sounds bilaterally. Absent: respiratory distress, wheezes, rales, rhonchi, stridor Cardiovascular Exam: Present: regular rate, normal rhythm, normal heart sounds. Absent: systolic murmur, diastolic murmur, rubs, gallop, clicks GI/Abdominal exam: Present: soft, normal bowel sounds. Absent: distended, tenderness, guarding, rebound, rigid Extremities exam: Present: normal inspection, full ROM, normal capillary refill. Absent: tenderness, pedal edema, joint swelling, calf tenderness Back exam: Present: normal inspection Neurological exam: Present: alert, oriented X3, CN II-XII intact Psychiatric exam: Present: normal affect, normal mood Skin exam: Present: warm, dry, intact, normal color. Absent: rash Course Vital Signs 01/22/24 01/22/24 04:07 08:01 Temperature 98.5 F 97.8 F Pulse Rate 96 115 H Respiratory 16 22 Rate Blood Pressure 156/94 157/99 O2 Sat by Pulse 99 99 Oximetry Medical Decision Making - Medical Decision Making Was pt. sent in by a medical professional or institution (, PA, FOOD SERVICE SPECIALIST, urgent care, hospital, or fci...) When possible be specific @ -No Did you speak to anyone other than the patient for history (EMS, parent, family, police, friend...)? What history was obtained from this source @ -No Did you review nursing and triage notes (agree or disagree)? Why? @ -I reviewed and agree with nursing and triage notes Were old charts reviewed (outside hosp., previous admission, EMS record, old EKG, old radiological studies, urgent care reports/EKG's, fci records)? Report findings @ -No old charts were reviewed Differential Diagnosis (chest pain, altered mental status, abdominal pain women, abdominal pain men, vaginal bleeding, weakness, fever, dyspnea, syncope, headache, dizziness, GI bleed, back pain, seizure, CVA, palpatations, mental health, musculoskeletal)? @ -Differential Vaginal Bleeding: Spontaneous , threatened , molar , ectopic , bloody show, incompetent cervix, abruptioplacenta, placenta previa, uterine rupture, dysfunctional uterine bleeding, hemorrhage, uterine fibroids, this is not meant to be an all-inclusive list. EKG interpreted by me (3pts min.). @ -Not done X-rays interpreted by me (1pt min.). @ -None done CT interpreted by me (1pt min.). @ -None done U/S interpreted by me (1pt. min.). @ -Yes and does not demonstrate cardiac activity. Dating appears to be small for patient's reported gestation. Fetus appears within the lower uterine region. Signs are concerning for demise What testing was considered but not performed or refused? (CT, X-rays, U/S, labs)? Why? @ -None What meds were considered but not given or refused? Why? @ -None Did you discuss the management of the patient with other professionals (professionals i.e. , PA, FOOD SERVICE SPECIALIST, lab, RT, psych nurse, social work manager, log turner, teacher, chief supply chain officer, binder caser)? Give summary @ -No Was smoking cessation discussed for >3mins.? @ -No Was critical care preformed (if so, how long)? @ -No Were there social determinants of health that impacted care today? How? (Homelessness, low income, unemployed, alcoholism, drug addiction, transportation, low edu. Level, literacy, decrease access to med. care, senior living, rehab)? @ -No Was there de-escalation of care discussed even if they declined (Discuss DNR or withdrawal of care, Hospice)? DNR status @ -No What co-morbidities impacted this encounter? (DM, HTN, Smoking, COPD, CAD, Cancer, CVA, ARF, Chemo, Hep., AIDS, mental health diagnosis, sleep apnea, morbid obesity)? @ -None Was patient admitted / discharged? Hospital course, mention meds given and route, prescriptions, significant lab abnormalities, going to OR and other pertinent info. @ -Upon arrival patient was seen and evaluated in room 32. Thorough history and physical exam was performed. Laboratory studies are conducted. Ultrasound was performed which demonstrates concerning signs for demise. Results are discussed with the patient. She is extremely upset by the findings. I did recommend that she follow-up with her DEICER FINISHER within the next few days for repeat ultrasound. Patient is warned that her vaginal bleeding could become heavier. She needs to follow-up with her DEICER FINISHER to ensure that her beta quant's do return to 0 should she miscarry. Stressed to return to the emergency department for any new or worsening symptoms. Patient was given a dose of RhoGAM due to her negative blood type and was discharged in stable condition Undiagnosed new problem with uncertain prognosis? @ -Yes Drug Therapy requiring intensive monitoring for toxicity (Heparin, Nitro, Insulin, Cardizem)? @ -No Were any procedures done? @ -No Diagnosis/symptom? @ -First trimester vaginal bleeding, suspected demise, incomplete Acute, or Chronic, or Acute on Chronic? @ -Acute Uncomplicated (without systemic symptoms) or Complicated (systemic symptoms)? @ -Complicated Side effects of treatment? @ -No Exacerbation, Progression, or Severe Exacerbation? @ -No Poses a threat to life or bodily function? How? (Chest pain, USA, CT, pneumonia, PE, COPD, DKA, ARF, appy, cholecystitis, CVA, Diverticulitis, Homicidal, Suicidal, threat to staff... and all critical care pts) @ -Yes as patient requires close follow-up to reevaluate vaginal bleeding in - Lab Data Result diagrams: 01/22/24 06:03 01/22/24 06:03 Lab Results 01/22/24 01/22/24 01/22/24 Range/Units 06:03 06:03 06:03 WBC 8.5 (3.8-10.6) k/uL RBC 4.15 (3.80-5.40) m/uL Hgb 10.9 L (11.4-16.0) gm/dL Hct 33.6 L (34.0-46.0) % MCV 81.0 (80.0-100.0) fL MCH 26.2 (25.0-35.0) pg MCHC 32.4 (31.0-37.0) g/dL RDW 16.3 H (11.5-15.5) % Plt Count 251 (150-450) k/uL MPV 7.2 Neutrophils % 78 % Lymphocytes % 16 % Monocytes % 4 % Eosinophils % 1 % Basophils % 1 % Neutrophils # 6.6 (1.3-7.7) k/uL Lymphocytes # 1.4 (1.0-4.8) k/uL Monocytes # 0.3 (0-1.0) k/uL Eosinophils # 0.1 (0-0.7) k/uL Basophils # 0.1 (0-0.2) k/uL Anisocytosis Slight Sodium 136 L (137-145) mmol/L Potassium 4.2 (3.5-5.1) mmol/L Chloride 107 (98-107) mmol/L Carbon Dioxide 26 (22-30) mmol/L Anion Gap 3 mmol/L BUN 11 (7-17) mg/dL Creatinine 0.56 (0.52-1.04) mg/dL Est GFR (CKD-EPI)AfAm >90 (>60 ml/min/1.73 sqM) Est GFR (CKD-EPI)NonAf >90 (>60 ml/min/1.73 sqM) Glucose 96 (74-99) mg/dL Calcium 9.0 (8.4-10.2) mg/dL Total Bilirubin 0.4 (0.2-1.3) mg/dL AST 16 (14-36) U/L ALT 10 (4-34) U/L Alkaline Phosphatase 78 (38-126) U/L Total Protein 6.4 (6.3-8.2) g/dL Albumin 3.7 (3.5-5.0) g/dL HCG, Quant 11595.7 mIU/mL Urine Color Light Yellow Urine Appearance Turbid H (Clear) Urine pH 7.0 (5.0-8.0) Ur Specific [place] 1.021 (1.001-1.035) Urine Protein Trace H (Negative) Urine Glucose (UA) Negative (Negative) Urine Ketones Negative (Negative) Urine Blood Large H (Negative) Urine Nitrite Negative (Negative) Urine Bilirubin Negative (Negative) Urine Urobilinogen <2.0 (<2.0) mg/dL Ur Leukocyte Esterase Trace H (Negative) Urine RBC 16 H (0-5) /hpf Urine WBC 3 (0-5) /hpf Ur Squamous Epith Cells 4 (0-4) /hpf Amorphous Sediment Few H (None) /hpf Urine Bacteria Rare H (None) /hpf Urine Mucus Moderate H (None) /hpf Blood Type Blood Type Recheck Bld Type Recheck Status Antibody Screen Spec Expiration Date 01/22/24 Range/Units 06:03 WBC (3.8-10.6) k/uL RBC (3.80-5.40) m/uL Hgb (11.4-16.0) gm/dL Hct (34.0-46.0) % MCV (80.0-100.0) fL MCH (25.0-35.0) pg MCHC (31.0-37.0) g/dL RDW (11.5-15.5) % Plt Count (150-450) k/uL MPV Neutrophils % % Lymphocytes % % Monocytes % % Eosinophils % % Basophils % % Neutrophils # (1.3-7.7) k/uL Lymphocytes # (1.0-4.8) k/uL Monocytes # (0-1.0) k/uL Eosinophils # (0-0.7) k/uL Basophils # (0-0.2) k/uL Anisocytosis Sodium (137-145) mmol/L Potassium (3.5-5.1) mmol/L Chloride (98-107) mmol/L Carbon Dioxide (22-30) mmol/L Anion Gap mmol/L BUN (7-17) mg/dL Creatinine (0.52-1.04) mg/dL Est GFR (CKD-EPI)AfAm (>60 ml/min/1.73 sqM) Est GFR (CKD-EPI)NonAf (>60 ml/min/1.73 sqM) Glucose (74-99) mg/dL Calcium (8.4-10.2) mg/dL Total Bilirubin (0.2-1.3) mg/dL AST (14-36) U/L ALT (4-34) U/L Alkaline Phosphatase (38-126) U/L Total Protein (6.3-8.2) g/dL Albumin (3.5-5.0) g/dL HCG, Quant mIU/mL Urine Color Urine Appearance (Clear) Urine pH (5.0-8.0) Ur Specific [place] (1.001-1.035) Urine Protein (Negative) Urine Glucose (UA) (Negative) Urine Ketones (Negative) Urine Blood (Negative) Urine Nitrite (Negative) Urine Bilirubin (Negative) Urine Urobilinogen (<2.0) mg/dL Ur Leukocyte Esterase (Negative) Urine RBC (0-5) /hpf Urine WBC (0-5) /hpf Ur Squamous Epith Cells (0-4) /hpf Amorphous Sediment (None) /hpf Urine Bacteria (None) /hpf Urine Mucus (None) /hpf Blood Type A Negative Blood Type Recheck A Neg Bld Type Recheck Status No Antibody Screen NEGATIVE Spec Expiration Date 01/25/20242302 Disposition Clinical Impression: Threatened miscarriage Disposition: HOME SELF-CARE Condition: Stable Instructions (If sedation given, give patient instructions): Threatened Miscarriage (ED) Additional Instructions: Please call your OB and have a repeat ultrasound performed this week. Is patient prescribed a controlled substance at d/c from ED?: No Referrals: Jae Shabazz MD [Primary Care Provider] - 1-2 days Time of Disposition: 07:48
[2024-01-22] MEDS: Rhogam IMMUNE GLOBULIN 1,500 UNIT/1 ML IM ONE (07:58)
[2024-01-22 08:06] LABS: HCG,Quantitative Serum 19368.7 mIU/mL
[2024-01-22 08:46] VITALS: BP 157/99; PULSE 115; RESP 22; TEMP 97.8
== END 2024-01-22 08:05 | disposition home or self-care (01) ==
LOC: EC 04:02
DX: O20.0 Threatened abortion (principal); Z3A.09 9 weeks gestation of pregnancy
CPT/HCPCS: 36415; 86900; 86901; 80053; 85025; 86850; 81001; 84702; 76801; 99284; 96372; J2790